=== PATIENT | male | born 1980 | race Two or more races ===

== ENCOUNTER 2025-07-04 15:26 | Emergency (ER) | payer OTHER ==
[~2025-07-04] VITALS: Ht 175.3 cm; Wt 69.4 kg
[2025-07-04] MEDS ORDERED: ACETAMINOPHEN 500 MG GEL..CAP PO ONE ×2 (17:15→17:55)
[2025-07-04] MEDS ORDERED: DIPHTH,PERTUSS(ACELL),TET VAC 0.5 ML VIAL IM ONE (17:15)
[2025-07-04] MEDS ORDERED: DIPHTH,PERTUSS(ACELL),TET VAC 0.5 ML SYRINGE IM ONE (17:56)
[2025-07-04] MEDS ORDERED: LIDOCAINE HCL 1% 10ML VIAL ONE (18:13)
== END 2025-07-04 20:08 | disposition home or self-care (01) ==
LOC: ER 15:26
DX: S01.81XA Laceration without foreign body of other part of head, initial encounter (principal); W45.8XXA Other foreign body or object entering through skin, initial encounter; Y93.89 Activity, other specified; Y92.89 Other specified places as the place of occurrence of the external cause; Y99.8 Other external cause status
CPT/HCPCS: 12001; 70450; 90471; 90714; J1670

== ENCOUNTER 2025-07-13 07:35 | Emergency (ER) | payer OTHER ==
[~2025-07-13] VITALS: Ht 175.3 cm; Wt 69.4 kg
== END 2025-07-13 08:39 | disposition home or self-care (01) ==
LOC: ER 07:36
DX: Z48.02 Encounter for removal of sutures (principal)